=== PATIENT | male | born 1985 | race Caucasian/White ===

== ENCOUNTER 2018-10-10 10:45 | Inpatient (IN) | payer MEDICAID, OTHER ==
[~2018-10-10] VITALS: Ht 175.3 cm; Wt 124.0 kg
[2018-10-10 12:25] LABS: Urine Bacteria FEW /hpf (None Seen); Urine Blood TRACE /uL (Negative); Urine Mucus FEW (None Seen); Urine Specific Gravity 1.038 (1.001-1.035); Urine WBC 20 /hpf (0 - 3)
[2018-10-10] MEDS ORDERED: cefTRIAXone 1GM/50ML D5W 50 ML IV ONE (13:45)
[2018-10-10] MEDS ORDERED: SODIUM CHLORIDE 0.9% 1,000 ML IV ONE ×2 (13:45→14:30)
[2018-10-10 14:07] LABS: Basophils # (auto) 0.2 uL; Basophils % (auto) 0.9 % (0.0-2.0); Eosinophils # (auto) 0 uL; Eosinophils % (auto) 0.1 % (0.0-7.0); Hematocrit 49.5 % (41.0-53.0); Hemoglobin 17.1 g/dL (13.5-17.5); Lymphocytes # (auto) 1.3 uL; Lymphocytes % (auto) 5.4 % (10.0-50.0); Mean Corpuscular Hemoglobin 28.8 pg (28.0-32.0); Mean Corpuscular Hgb Conc. 34.5 g/dL (32.0-36.0); Mean Corpuscular Volume 83.3 fL (80.0-100.0); Monocytes # (auto) 1.9 uL; Monocytes % (auto) 7.8 % (0.0-12.0); Neutrophils # (auto) 20.8 uL; Neutrophils % (auto) 85.8 % (37.0-80.0); Nucleated Red Blood Cells % 0.2 %; Platelet Count (auto) 176 10^3/uL (140-450); Red Blood Cells 5.94 10^6/uL (4.5-5.90); Red Cell Distribution Width 13.3 % (11.8-14.3); White Blood Cell 24.3 10^3/uL (4.4-10.8)
[2018-10-10 14:28] LABS: BUN/Creatinine Ratio 10.7; Calcium 9.2 mg/dL (8.5-10.1); Potassium 4.6 mmol/L (3.5-5.1)
[2018-10-10] MEDS ORDERED: CLINDAMYCIN 900MG IV 50 ML IV ONE (14:30)
[2018-10-10] MEDS ORDERED: InsuLIN REG 1unit/0.01ml Soln (100units/ml) IV ONE (14:45)
[2018-10-10] MEDS ORDERED: ONDANSETRON HCL 4 MG/2 ML VIAL IV PRN (16:45)
[2018-10-10] MEDS ORDERED: HYDROcodone-ACET 5/325MG TAB PO PRN (16:45)
[2018-10-10] MEDS ORDERED: MORPHINE SULF INJ 2 MG/ML SYRINGE 1ML IV PRN ×2 (16:45)
[2018-10-10] MEDS ORDERED: ACETAMINOPHEN 500 MG TAB PO PRN (16:45)
[2018-10-10] MEDS ORDERED: NITROGLYCERIN 0.4 MG SL TAB SL PRN (16:45)
[2018-10-10] MEDS ORDERED: DEXTROSE (50%) 50ML SYRG IV PRN (16:45)
[2018-10-10] MEDS: SODIUM CHLORIDE 0.9% 1,000 ML IV SCH (16:50)
[2018-10-10] MEDS: InsuLIN REG 1unit/0.01ml Soln (100units/ml) SC SCH ×2 (17:55→22:10)
[2018-10-10] MEDS: ACCU-CHEK COMFORT CURVE STRIP VI SCH ×2 (17:59→22:09)
[2018-10-10 18:12] LABS: Lactic Acid w/Reflex 2.7 mmol/L (0.4-2.0)
--- NOTE | 2018-10-10 18:23 | NUR ---
MS admit from ER SHANTELLLINDA admitted to ROOM 248B. Patient oriented to Allyson Ludwig, primary RN, unit, room, bed, and unit policies regarding patient care and visiting hours. All questions and concerns addressed, patient verbalized understanding. Bed locked in the lowest position. Bed rails up x2. Call light in reach.
[2018-10-10 18:34] VITALS: BP 168/99
[2018-10-10] MEDS: hydrALAZINE HCL 20 MG/ML VL IV PRN (18:50)
--- NOTE | 2018-10-10 19:00 | NUR ---
CLOSING NOTE Patient is awake and alert. No S/S of distress/SOB or pain. Bed locked in the lowest position. Bed rails up x2. Call light in reach. Endorsed care and admit to night nurse. Night RN Marycarmen aware of last bp and administration of iv bp medication.
--- NOTE | 2018-10-10 19:40 | NUR ---
Opening Shift Note Assumed care of patient, alert and oriented x 4. On room air and ambulatory. No S/S of distress/SOB or pain. Bed in lowest locked position, side rails up x 2, call light within reach. Instructed on POC and to call for assist PRN, will continue to monitor for changes Q1hr and PRN.
[2018-10-10 20:00] VITALS: BP 168/99
[2018-10-10] MEDS: CLINDAMYCIN 300MG IV 50 ML IV SCH (22:05)
[2018-10-10 22:26] VITALS: BP 145/85
[2018-10-11] MEDS: SODIUM CHLORIDE 0.9% 1,000 ML IV SCH (00:54)
[2018-10-11] MEDS: hydrALAZINE HCL 20 MG/ML VL IV PRN ×2 (04:46→16:46)
[2018-10-11 05:30] VITALS: BP 187/109
[2018-10-11 06:24] LABS: Basophils # (auto) 0.1 uL; Basophils % (auto) 0.7 % (0.0-2.0); Eosinophils # (auto) 0 uL; Eosinophils % (auto) 0.1 % (0.0-7.0); Hematocrit 41.4 % (41.0-53.0); Hemoglobin 14.6 g/dL (13.5-17.5); Lymphocytes # (auto) 1.7 uL; Lymphocytes % (auto) 8.7 % (10.0-50.0); Mean Corpuscular Hgb Conc. 35.1 g/dL (32.0-36.0); Mean Corpuscular Volume 82.6 fL (80.0-100.0); Monocytes # (auto) 1.7 uL; Monocytes % (auto) 8.5 % (0.0-12.0); Neutrophils # (auto) 16.3 uL; Nucleated Red Blood Cells % 0.1 %; Platelet Count (auto) 145 10^3/uL (140-450); Red Blood Cells 5.02 10^6/uL (4.5-5.90); Red Cell Distribution Width 12.7 % (11.8-14.3); White Blood Cell 19.9 10^3/uL (4.4-10.8)
[2018-10-11] MEDS: CLINDAMYCIN 300MG IV 50 ML IV SCH ×3 (06:40→22:43)
[2018-10-11] MEDS: ACCU-CHEK COMFORT CURVE STRIP VI SCH ×4 (06:40→22:43)
[2018-10-11] MEDS: InsuLIN REG 1unit/0.01ml Soln (100units/ml) SC SCH ×4 (06:41→22:44)
[2018-10-11 06:45] LABS: Albumin 2.9 g/dL (3.4-5.0); BUN/Creatinine Ratio 14.7; Calcium 8.2 mg/dL (8.5-10.1)
[2018-10-11 06:48] LABS: Bilirubin, Total 1.1 mg/dL (0.2-1.0)
[2018-10-11 06:49] LABS: Total Protein 7.2 g/dL (6.4-8.2)
[2018-10-11] MEDS: LEVOFLOXACIN 750MG 150 ML IV SCH (10:23)
[2018-10-11] MEDS: FAMOTIDINE 20 MG TAB PO SCH (10:23)
[2018-10-11] MEDS ORDERED: amLODIPine BESYLATE 5 MG TAB PO ONE (11:00)
--- NOTE | 2018-10-11 11:27 | NUR ---
Urology at bedside MD Valles at bedside. New orders received for scrotal support. Placed towels under patient's scrotum and instructed patient to continue scrotal support as ordered. Patient tolerated well. No distress noted at this time. Will cont to monitor
[2018-10-11 12:18] LABS: Lactic Acid w/Reflex 2.1 mmol/L (0.4-2.0)
[2018-10-11 13:00] VITALS: BP 158/90
[2018-10-11 17:01] VITALS: BP 169/111
[2018-10-11 18:10] VITALS: BP 157/91
--- NOTE | 2018-10-11 18:10 | NUR ---
BP Reassessed, Hospitalist paged Medicated with Apresoline as ordered, BP reassessed is 157/91 hr 116. Paged hospitalist for further ordered. Awaiting call back
--- NOTE | 2018-10-11 19:00 | NUR ---
Hospitalist call back spoke to Dr Marin regarding elevated BP, no new orders received at this time per Doctor Tania continue to monitor.
--- NOTE | 2018-10-11 19:50 | NUR ---
Opening Shift Note Assumed care of patient, alert and oriented x 4. On room air and ambulatory. No S/S of distress/SOB or pain. Per dayshift nurse, continue monitoring high blood pressure. Bed in lowest locked position, side rails up x 2, call light within reach. Instructed on POC and to call for assist PRN, will continue to monitor for changes Q1hr and PRN.
[2018-10-11 20:00] VITALS: BP 153/100
[2018-10-11 21:30] VITALS: BP 153/100
--- NOTE | 2018-10-12 05:10 | NUR ---
Blood pressure 161/115 Upon assessment, no S/S of distress or SOB noted. Administered Apresoline 10mg IV PRN for SBP >150 as ordered. Rechecked patients blood pressure reading 151/95. Patient resting in bed, will relay assessment and orders carried out to dayshift RN.
[2018-10-12 05:48] VITALS: BP 161/115
[2018-10-12] MEDS: CLINDAMYCIN 300MG IV 50 ML IV SCH ×3 (06:28→21:42)
[2018-10-12] MEDS: ACCU-CHEK COMFORT CURVE STRIP VI SCH ×4 (06:29→21:42)
[2018-10-12] MEDS: InsuLIN REG 1unit/0.01ml Soln (100units/ml) SC SCH ×4 (06:29→21:43)
[2018-10-12 07:14] LABS: Basophils # (auto) 0 uL; Basophils % (auto) 0.2 % (0.0-2.0); Eosinophils # (auto) 0.1 uL; Eosinophils % (auto) 0.6 % (0.0-7.0); Hematocrit 43.3 % (41.0-53.0); Hemoglobin 14.8 g/dL (13.5-17.5); Lymphocytes # (auto) 1.8 uL; Mean Corpuscular Hemoglobin 28.6 pg (28.0-32.0); Mean Corpuscular Hgb Conc. 34.1 g/dL (32.0-36.0); Monocytes # (auto) 1.6 uL; Neutrophils % (auto) 80.2 % (37.0-80.0); Nucleated Red Blood Cells % 0.1 %; Platelet Count (auto) 168 10^3/uL (140-450); Red Blood Cells 5.16 10^6/uL (4.5-5.90); Red Cell Distribution Width 13.3 % (11.8-14.3); White Blood Cell 17.5 10^3/uL (4.4-10.8)
[2018-10-12 07:16] LABS: Albumin 2.9 g/dL (3.4-5.0); Calcium 8.6 mg/dL (8.5-10.1); Potassium 4.1 mmol/L (3.5-5.1)
[2018-10-12 07:20] LABS: BUN/Creatinine Ratio 16.7; Bilirubin, Total 0.8 mg/dL (0.2-1.0); Total Protein 7.7 g/dL (6.4-8.2)
[2018-10-12 09:21] VITALS: BP 178/96
[2018-10-12] MEDS ORDERED: LOSARTAN POTASSIUM 25 MG TAB PO SCH (10:00)
[2018-10-12] MEDS: FAMOTIDINE 20 MG TAB PO SCH (10:06)
[2018-10-12] MEDS: LEVOFLOXACIN 750MG 150 ML IV SCH (10:06)
[2018-10-12] MEDS: amLODIPine BESYLATE 5 MG TAB PO SCH (10:10)
[2018-10-12] MEDS ORDERED: metFORMIN HYDROCHLORIDE 500 MG TAB PO ONE (11:30)
[2018-10-12] MEDS ORDERED: DEXTROSE (50%) 50ML SYRG IV PRN (11:30)
[2018-10-12 12:39] VITALS: BP 167/95
[2018-10-12] MEDS: hydrALAZINE HCL 20 MG/ML VL IV PRN ×2 (12:44→21:43)
[2018-10-12] MEDS ORDERED: LOSARTAN POTASSIUM 25 MG TAB PO ONE (14:00)
--- NOTE | 2018-10-12 14:43 | NUR ---
Nutrition Assessment Notes please see attached link for complete assessment Est. Needs ABW 83 [id number] kcal (23-25 kcal/kgBW), 83-91 gms pro (1.0-1.1 gms/kgBW). Will continue to monitor pertinent labs and reassess nutrient need prn Addendum: 10/12/18 at [address] Amended: Links added.
[2018-10-12 16:39] VITALS: BP 156/87
--- NOTE | 2018-10-12 17:50 | NUR ---
Urologist at bedside DUY Lion at bedside to assess patient. Scrotal support in place as ordered. No further orders received at this time. Will cont care
[2018-10-12] MEDS: metFORMIN HYDROCHLORIDE 500 MG TAB PO SCH (17:57)
[2018-10-12] MEDS: cloNIDine HCL 0.1 MG TAB PO PRN (18:57)
--- NOTE | 2018-10-12 19:00 | NUR ---
Endorsed care care endorsed to Marycarmen gordon. Patient laying down in bed, family at bedside. No ss of distress or sob. Patient medicated for increased BP and instructed to call for assistance as needed. Call light within reach
[2018-10-12 20:00] VITALS: BP 163/99
[2018-10-12 21:27] VITALS: BP 163/99
[2018-10-13 05:21] VITALS: BP 143/87
[2018-10-13 06:10] LABS: Basophils # (auto) 0.1 uL; Basophils % (auto) 0.6 % (0.0-2.0); Eosinophils # (auto) 0.1 uL; Eosinophils % (auto) 0.9 % (0.0-7.0); Hematocrit 43.2 % (41.0-53.0); Hemoglobin 14.8 g/dL (13.5-17.5); Lymphocytes % (auto) 12.5 % (10.0-50.0); Mean Corpuscular Hemoglobin 28.3 pg (28.0-32.0); Mean Corpuscular Hgb Conc. 34.2 g/dL (32.0-36.0); Mean Corpuscular Volume 82.9 fL (80.0-100.0); Monocytes # (auto) 1.5 uL; Monocytes % (auto) 9.7 % (0.0-12.0); Neutrophils # (auto) 11.9 uL; Neutrophils % (auto) 76.3 % (37.0-80.0); Nucleated Red Blood Cells % 0.1 %; Platelet Count (auto) 193 10^3/uL (140-450); Red Blood Cells 5.22 10^6/uL (4.5-5.90); Red Cell Distribution Width 13.3 % (11.8-14.3); White Blood Cell 15.6 10^3/uL (4.4-10.8)
[2018-10-13] MEDS: CLINDAMYCIN 300MG IV 50 ML IV SCH ×2 (06:15→14:00)
[2018-10-13] MEDS: ACCU-CHEK COMFORT CURVE STRIP VI SCH ×4 (06:15→22:00)
[2018-10-13] MEDS: InsuLIN REG 1unit/0.01ml Soln (100units/ml) SC SCH ×4 (06:17→22:00)
[2018-10-13 06:32] LABS: BUN/Creatinine Ratio 19.1; Calcium 8.8 mg/dL (8.5-10.1); Potassium 3.7 mmol/L (3.5-5.1)
[2018-10-13 08:00] VITALS: BP 143/87
[2018-10-13] MEDS: metFORMIN HYDROCHLORIDE 500 MG TAB PO SCH (08:00)
[2018-10-13 08:45] VITALS: BP 145/99
[2018-10-13] MEDS: FAMOTIDINE 20 MG TAB PO SCH (09:44)
[2018-10-13] MEDS: LEVOFLOXACIN 750MG 150 ML IV SCH (09:47)
[2018-10-13] MEDS: SODIUM CHLORIDE 0.9% 1,000 ML IV SCH ×2 (10:00→18:00)
[2018-10-13] MEDS: LOSARTAN POTASSIUM 50 MG TAB PO SCH (10:00)
[2018-10-13] MEDS ORDERED: LOSARTAN POTASSIUM 25 MG TAB PO SCH (10:00)
[2018-10-13] MEDS: amLODIPine BESYLATE 5 MG TAB PO SCH (10:00)
[2018-10-13] MEDS: ENOXAPARIN SOD 40 MG/0.4 ML SYRINGE SC SCH (12:30)
[2018-10-13 16:53] VITALS: BP 150/84
[2018-10-13 22:00] VITALS: BP 154/96
[2018-10-14] MEDS: CLINDAMYCIN 300MG IV 50 ML IV SCH ×4 (03:54→21:34)
[2018-10-14 05:00] VITALS: BP 152/101
[2018-10-14 06:20] LABS: Basophils # (auto) 0.1 uL; Basophils % (auto) 0.5 % (0.0-2.0); Eosinophils # (auto) 0.1 uL; Hematocrit 42.3 % (41.0-53.0); Hemoglobin 14.6 g/dL (13.5-17.5); Lymphocytes # (auto) 2.2 uL; Lymphocytes % (auto) 15.9 % (10.0-50.0); Mean Corpuscular Hemoglobin 28.9 pg (28.0-32.0); Mean Corpuscular Hgb Conc. 34.7 g/dL (32.0-36.0); Mean Corpuscular Volume 83.3 fL (80.0-100.0); Monocytes # (auto) 1.2 uL; Neutrophils # (auto) 10.2 uL; Neutrophils % (auto) 73.6 % (37.0-80.0); Nucleated Red Blood Cells % 0.5 %; Platelet Count (auto) 212 10^3/uL (140-450); Red Blood Cells 5.07 10^6/uL (4.5-5.90); Red Cell Distribution Width 13.1 % (11.8-14.3); White Blood Cell 13.8 10^3/uL (4.4-10.8)
[2018-10-14] MEDS: InsuLIN REG 1unit/0.01ml Soln (100units/ml) SC SCH ×4 (06:38→21:34)
[2018-10-14] MEDS: ACCU-CHEK COMFORT CURVE STRIP VI SCH ×4 (06:38→21:34)
[2018-10-14 06:41] LABS: Calcium 8.8 mg/dL (8.5-10.1); Potassium 3.9 mmol/L (3.5-5.1)
--- NOTE | 2018-10-14 07:30 | NUR ---
Opening Shift Note Assuming care of patient at this time. Patient is awake and alert. Patient denies pain. Patient shows no signs or symptoms of distress or shortness of breath. Bed is locked and lowered with side rails up x2. Instructed patient on the plan of care for today and to call for assistance as needed. Call light within reach. Will continue to round hourly and as needed.
[2018-10-14] MEDS ORDERED: LABETALOL HCL 5 MG/ML ML 20ML VIAL IV PRN (07:45)
--- NOTE | 2018-10-14 08:49 | NUR ---
Call to Pharmacy Call to pharmacy at this time regarding patient's clindamycin times being off scheduled. Asked for patient's clindamycin to be rescheduled. Pharmacist states to give 0600 dose now and give 1400 dose as scheduled. Will follow those scheduled times.
[2018-10-14 09:00] VITALS: BP 148/97
[2018-10-14] MEDS: FAMOTIDINE 20 MG TAB PO SCH (10:52)
[2018-10-14] MEDS: amLODIPine BESYLATE 5 MG TAB PO SCH (10:53)
[2018-10-14] MEDS: LOSARTAN POTASSIUM 50 MG TAB PO SCH (10:54)
[2018-10-14] MEDS: ENOXAPARIN SOD 40 MG/0.4 ML SYRINGE SC SCH (10:54)
[2018-10-14] MEDS: metFORMIN HYDROCHLORIDE 500 MG TAB PO SCH ×2 (12:02→17:34)
[2018-10-14] MEDS: LEVOFLOXACIN 750MG 150 ML IV SCH (12:12)
[2018-10-14] MEDS ORDERED: ENOXAPARIN SOD 40 MG/0.4 ML SYRINGE SC ONE (12:15)
[2018-10-14 13:00] VITALS: BP 171/102
[2018-10-14] MEDS: hydrALAZINE HCL 20 MG/ML VL IV PRN (16:28)
--- NOTE | 2018-10-14 16:28 | NUR ---
Patient's Blood Pressure Patient's blood pressure is 171/99 at this time. Will administer apresoline per doctor's orders.
[2018-10-14 17:00] VITALS: BP 153/88
[2018-10-14 17:57] VITALS: BP 152/85
--- NOTE | 2018-10-14 17:57 | NUR ---
Re: Reassessment of blood pressure Reassessed patient's blood pressure at this time using a larger cuff. Blood pressure is 152/85. Patient states that the larger cuff is uncomfortable, however, the smaller cuff does not seem to be appropriate in size. A more accurate reading was obtained using the larger cuff. Patient's blood pressure is still over 150.
--- NOTE | 2018-10-14 18:15 | NUR ---
Blood Pressure Administered clonidine at this time due to patient's elevated blood pressure.
[2018-10-14] MEDS: cloNIDine HCL 0.1 MG TAB PO PRN (18:17)
--- NOTE | 2018-10-14 19:35 | NUR ---
RECEIVED PATIENT, AWAKE, ALERT, ORIENTED X4. NO S/S OF RESPIRATORY DISTRESS, DENIES ANY PAIN. ORIENTED ON PLAN OF CARE. BED IS LOCKED AND IN LOWEST POSITION, SIDE RAILS UP X2, CALL LIGHT WITHIN REACH. WILL CONTINUE TO MONITOR
[2018-10-14 21:00] VITALS: BP 137/85
[2018-10-14] MEDS ORDERED: FLUCONAZOLE 100 MG TAB PO ONE (22:00)
[2018-10-15] MEDS: cloNIDine HCL 0.1 MG TAB PO PRN (04:28)
[2018-10-15 04:30] VITALS: BP 154/90
--- NOTE | 2018-10-15 06:10 | NUR ---
UA SAMPLE SENT TO LAB
[2018-10-15 06:16] LABS: Basophils # (auto) 0.1 uL; Basophils % (auto) 0.5 % (0.0-2.0); Eosinophils # (auto) 0.1 uL; Eosinophils % (auto) 0.7 % (0.0-7.0); Hematocrit 42.6 % (41.0-53.0); Lymphocytes # (auto) 2.1 uL; Lymphocytes % (auto) 14.8 % (10.0-50.0); Mean Corpuscular Hemoglobin 29.1 pg (28.0-32.0); Mean Corpuscular Hgb Conc. 35.2 g/dL (32.0-36.0); Mean Corpuscular Volume 82.8 fL (80.0-100.0); Monocytes # (auto) 1.2 uL; Monocytes % (auto) 8.7 % (0.0-12.0); Neutrophils # (auto) 10.5 uL; Neutrophils % (auto) 75.3 % (37.0-80.0); Nucleated Red Blood Cells % 0.1 %; Platelet Count (auto) 222 10^3/uL (140-450); Red Blood Cells 5.15 10^6/uL (4.5-5.90)
[2018-10-15] MEDS: CLINDAMYCIN 300MG IV 50 ML IV SCH (06:19)
[2018-10-15] MEDS: InsuLIN REG 1unit/0.01ml Soln (100units/ml) SC SCH ×3 (06:20→18:42)
[2018-10-15] MEDS: ACCU-CHEK COMFORT CURVE STRIP VI SCH ×3 (06:20→17:50)
[2018-10-15 06:22] LABS: BUN/Creatinine Ratio 13.7; Magnesium 1.9 mg/dL (1.6-2.6)
[2018-10-15 06:39] LABS: Urine Bacteria NONE SEEN /hpf (None Seen); Urine Blood TRACE /uL (Negative); Urine Budding Yeast OCCASIONAL /hpf (None Seen); Urine Mucus FEW (None Seen); Urine Specific Gravity 1.013 (1.001-1.035); Urine WBC 19 /hpf (0 - 3)
--- NOTE | 2018-10-15 07:17 | NUR ---
CARE ENDORSED TO AM SHIFT RN
[2018-10-15] MEDS: metFORMIN HYDROCHLORIDE 500 MG TAB PO SCH ×2 (08:05→18:42)
[2018-10-15 09:00] VITALS: BP 156/97
[2018-10-15] MEDS: FAMOTIDINE 20 MG TAB PO SCH (09:42)
[2018-10-15] MEDS: LOSARTAN POTASSIUM 50 MG TAB PO SCH (09:43)
[2018-10-15] MEDS: ENOXAPARIN SOD 40 MG/0.4 ML SYRINGE SC SCH (09:45)
[2018-10-15] MEDS: amLODIPine BESYLATE 5 MG TAB PO SCH (09:45)
[2018-10-15] MEDS: LEVOFLOXACIN 750MG 150 ML IV SCH (09:45)
[2018-10-15] MEDS ORDERED: ENOXAPARIN SOD 40 MG/0.4 ML SYRINGE SC SCH (10:00)
[2018-10-15] MEDS ORDERED: FLUCONAZOLE 100 MG TAB PO SCH (10:00)
[2018-10-15 13:00] VITALS: BP 154/98
[2018-10-15 17:00] VITALS: BP 159/94
[2018-10-15 17:33] VITALS: BP 154/98
--- NOTE | 2018-10-15 18:45 | NUR ---
Discharge Discharge instructions given as ordered. Encourage to follow up with PMD as instructed. All questions and concerns addressed. Diabetic Teaching done, showed patient how to check blood sugar. Return demonstration done. Gave patient all necessary diabetic education teaching, including pamphlets and brochures for classes. Patient verbalized understanding. Father at bedside. IV removed with catheter intact, pressure dressing applied. Patient ambulated with all personal belongings, accompanied by family member. No distress noted at time of departure.
== END 2018-10-15 18:58 | disposition home or self-care (01) | DRG 720 ==
LOC: ER 10:45 → OVERFLOW 10:46 → EAST 18:28
PROVIDERS: ADMIT Nurse Practitioner Acute Care; ATTEND Internal Medicine Nephrology
DX: A41.9 Sepsis, unspecified organism (principal); E11.22 Type 2 diabetes mellitus with diabetic chronic kidney disease; B48.8 Other specified mycoses; E11.65 Type 2 diabetes mellitus with hyperglycemia; N18.3 Chronic kidney disease, stage 3 (moderate); R65.20 Severe sepsis without septic shock; N49.2 Inflammatory disorders of scrotum; E86.0 Dehydration; E66.9 Obesity, unspecified; I12.9 Hypertensive chronic kidney disease with stage 1 through stage 4 chronic kidney disease, or unspecified chronic kidney disease; Z88.0 Allergy status to penicillin; Z88.8 Allergy status to other drugs, medicaments and biological substances; F17.210 Nicotine dependence, cigarettes, uncomplicated; N50.89 Other specified disorders of the male genital organs; Z82.49 Family history of ischemic heart disease and other diseases of the circulatory system; Z83.3 Family history of diabetes mellitus; Z87.892 Personal history of anaphylaxis; Z68.41 Body mass index [BMI] 40.0-44.9, adult; E87.1 Hypo-osmolality and hyponatremia; N39.0 Urinary tract infection, site not specified
CPT/HCPCS: 36415; 76870; 80048; 80053; 80061; 81001; 82043; 82962; 83036; 83605; 83735; 85025; 87040; 87081; 87086; 93005; 96361; 96365; 96367; 96375; G0378; J0696; J1815; J1956; J3490

== ENCOUNTER 2021-08-13 11:20 | Emergency (ER) | payer MEDICAID ==
[~2021-08-13] VITALS: Ht 175.3 cm; Wt 127.0 kg
[2021-08-13 11:30] VITALS: BP 157/87
[2021-08-13] MEDS ORDERED: LIDOCAINE 1% HCL (LOCAL ANESTH.) INJ 20ML MDV ONE (12:42)
[2021-08-13] MEDS ORDERED: LIDOCAINE 1% HCL (LOCAL ANESTH.) INJ 20ML MDV IJ ONE (12:45)
[2021-08-13] MEDS ORDERED: IBUP800T27 PO (13:01)
[2021-08-13] MEDS ORDERED: SULF400T11 PO (13:01)
[2021-08-18] MEDS ORDERED: LOSA-69 PO (10:42)
[2021-08-18] MEDS ORDERED: CAR125T OR (10:42)
[2021-08-18] MEDS ORDERED: AMLO-489 PO (10:42)
[2021-08-18] MEDS ORDERED: METF-370 PO (10:42)
[2021-08-18] MEDS ORDERED: CLIN300C8 PO (10:43)
== END 2021-08-13 13:31 | disposition home or self-care (01) ==
LOC: ER 11:20
DX: L02.412 Cutaneous abscess of left axilla (principal); E11.9 Type 2 diabetes mellitus without complications; I10 Essential (primary) hypertension; Z88.0 Allergy status to penicillin
CPT/HCPCS: 10060; 99283; J2001

== ENCOUNTER 2023-10-04 11:14 | Inpatient (IN) | payer MEDICAID ==
[~2023-10-04] VITALS: Ht 175.3 cm; Wt 128.0 kg
[~2023-10-04 11:14] MED LIST: AMLO1TAB22 PO; CARV-216 OR; CLIN1CAP70 PO; LOSA-534 PO; METF-370 PO
[2023-10-04 11:57] LABS: Hemoglobin 13.9 g/dL (13.5-17.5); Mean Corpuscular Hemoglobin 28.4 pg (28.0-32.0); Mean Corpuscular Volume 83.6 fL (80.0-100.0); Platelet Count (auto) 183 10^3/uL (140-450); Red Cell Distribution Width 13.2 % (11.8-14.3)
[2023-10-04] MEDS: SODIUM CHLORIDE 0.9% 500 ML IV ONE (12:00)
[2023-10-04 12:02] LABS: Band Neutrophils % (manual) 0; Basophils % (manual) 0 (0.0-2.0); Blast Cells 0; Eosinophils % (manual) 0 (0-7); Metamyelocytes % 0; Myelocytes % 0; Promyelocytes % 0; Reactive Lymphocytes 0; White Blood Cell 36.5 10^3/uL (4.4-10.8)
[2023-10-04 12:10] LABS: Chloride 86 mmol/L (98-107); Potassium 4.4 mmol/L (3.5-5.1); Sodium 121 mmol/L (136-145)
[2023-10-04 12:11] LABS: Calcium 8.8 mg/dL (8.7-10.4); Carbon Dioxide 26 mmol/L (20-30)
[2023-10-04 12:16] LABS: BUN/Creatinine Ratio 12.9 (10.0-20.0); Blood Urea Nitrogen 13 mg/dL (9-23)
[2023-10-04 12:18] LABS: Glucose 509 mg/dL (74-106)
[2023-10-04 12:22] LABS: Lactic Acid w/Reflex 3.1 mmol/L (0.4-2.0)
[2023-10-04 12:38] LABS: Anion Gap 9 (5-15)
[2023-10-04 12:41] LABS: Lymphocytes % (manual) 12 (10.0-50.0); Monocytes % (manual) 9 (0-12); Platelet Estimate Adequate
[2023-10-04 12:45] LABS: Erythrocyte Sedimentation Rate 72 mm/hr (0-20)
[2023-10-04] MEDS: VANCOMYCIN 1GM/200ML 200 ML IV ONE (13:27)
[2023-10-04] MEDS: InsuLIN REG 1unit/0.01ml Soln (100units/ml) IV ONE (13:27)
[2023-10-04 13:35] VITALS: PULSE 121; RESP 14; O2SAT 95
[2023-10-04] MEDS ORDERED: NITROGLYCERIN 0.4 MG SL TAB SL PRN (14:00)
[2023-10-04] MEDS: ENOXAPARIN SOD 40 MG/0.4 ML SYRINGE SC SCH (14:00)
[2023-10-04] MEDS ORDERED: DEXTROSE (50%) 50ML SYRG IV PRN (14:00)
[2023-10-04] MEDS ORDERED: ONDANSETRON HCL 4 MG/2 ML VIAL IV PRN (14:00)
[2023-10-04] MEDS ORDERED: VANCOMYCIN PER PHARMACY 0 MG IV SCH (14:00)
[2023-10-04] MEDS: SODIUM CHLORIDE 0.9% 1,000 ML IV SCH (14:54)
[2023-10-04] MEDS: TETANUS-DIPTH-ACEL PERTUSSIS 0.5ML SYR Tdap IM ONE (15:03)
[2023-10-04] MEDS: metroNIDAZOLE 500MG/100ML 100 ML IV ONE (15:26)
[2023-10-04] MEDS: CEFEPIME 2GM/50ML NS 50 ML IV ONE (15:26)
[2023-10-04] MEDS: SODIUM CHLORIDE 0.9% 2,000 ML IV ONE (15:44)
[2023-10-04] MEDS: ACCU-CHEK COMFORT CURVE STRIP VI SCH (16:00)
[2023-10-04 17:29] VITALS: BP 145/91; PULSE 111; RESP 18; TEMP 99.2; O2SAT 92
[2023-10-04 17:30] VITALS: BP 145/91; PULSE 111; RESP 20; TEMP 98.9; O2SAT 92
[2023-10-04] MEDS: InsuLIN REG 1unit/0.01ml Soln (100units/ml) SC SCH (18:57)
[2023-10-04 19:33] LABS: Base Excess 2.2 mmol/L (-2.0-2.0)
[2023-10-04 20:00] VITALS: PULSE 112
[2023-10-04] MEDS: metroNIDAZOLE 500MG/100ML 100 ML IV SCH (20:28)
[2023-10-04 21:00] VITALS: BP 128/73; PULSE 112; RESP 20; TEMP 98.6; O2SAT 96
[2023-10-04 21:45] LABS: Chloride 90 mmol/L (98-107); Sodium 124 mmol/L (136-145)
[2023-10-04 21:46] LABS: Anion Gap 8 (5-15); Carbon Dioxide 26 mmol/L (20-30)
[2023-10-04 21:47] LABS: Calcium 8.3 mg/dL (8.7-10.4)
[2023-10-04 21:51] LABS: BUN/Creatinine Ratio 16.3 (10.0-20.0); Blood Urea Nitrogen 15 mg/dL (9-23)
[2023-10-04 22:05] LABS: Glucose 439 mg/dL (74-106)
[2023-10-04] MEDS: VANCOMYCIN 1GM/200ML 200 ML IV SCH (22:20)
[2023-10-04] MEDS: CEFEPIME 2GM/50ML NS 50 ML IV SCH (23:36)
[2023-10-05] VITALS (7 sets, daily range): BP systolic 130–147; BP diastolic 86–91; PULSE 75–116; RESP 16–20; TEMP 98.6–100.1; O2SAT 92–96
[2023-10-05 06:24] LABS: Basophils # (auto) 0.1 10 ^3/uL (0-0.2); Basophils % (auto) 0.2 % (0.0-2.0); Eosinophils # (auto) 0 10 ^3/uL (0-0.8); Eosinophils % (auto) 0.2 % (0.0-7.0); Hematocrit 37.6 % (41.0-53.0); Hemoglobin 12.8 g/dL (13.5-17.5); Lymphocytes # (auto) 2.8 10 ^3/uL (0.4-5.4); Lymphocytes % (auto) 12.1 % (10.0-50.0); Mean Corpuscular Hemoglobin 28.2 pg (28.0-32.0); Mean Corpuscular Volume 83.1 fL (80.0-100.0); Monocytes # (auto) 2.5 10 ^3/uL (0-1.3); Neutrophils # (auto) 17.5 10 ^3/uL (1.6-8.6); Neutrophils % (auto) 76.5 % (37.0-80.0); Platelet Count (auto) 164 10^3/uL (140-450); Red Blood Cells 4.53 10^6/uL (4.5-5.90); Red Cell Distribution Width 13.4 % (11.8-14.3); White Blood Cell 22.9 10^3/uL (4.4-10.8)
[2023-10-05 06:47] LABS: Alanine Aminotransferase 13 U/L (7-40); Albumin 3.1 g/dL (3.2-4.8); Alkaline Phosphatase 135 U/L (46-116); Anion Gap 7 (5-15); Aspartate Aminotransferase 12 U/L (13-40); Blood Urea Nitrogen 12 mg/dL (9-23); Calcium 8.1 mg/dL (8.7-10.4); Carbon Dioxide 27 mmol/L (20-30); Chloride 92 mmol/L (98-107); Potassium 3.6 mmol/L (3.5-5.1); Sodium 126 mmol/L (136-145)
[2023-10-05 06:48] LABS: Bilirubin, Total 0.5 mg/dL (0.2-1.0); Glucose 270 mg/dL (74-106); Total Protein 6.8 g/dL (5.7-8.2)
[2023-10-05] MEDS: CLINDAMYCIN 600MG IV 50 ML IV SCH (10:07)
[2023-10-05] MEDS: MEROPENEM 1GM IVPB 50 ML IV SCH (14:51)
[2023-10-05] MEDS: VANCOMYCIN 1GM/200ML 200 ML IV SCH (18:23)
[2023-10-05] MEDS: MORPHINE SULFATE INJ 2 MG/ml SYRG IV PRN (20:25)
[2023-10-06] VITALS (8 sets, daily range): BP systolic 135–149; BP diastolic 87–98; PULSE 95–118; RESP 16–22; TEMP 98.1–100.4; O2SAT 93–99
[2023-10-06 06:39] LABS: Chloride 91 mmol/L (98-107); Potassium 3.8 mmol/L (3.5-5.1); Sodium 125 mmol/L (136-145)
[2023-10-06 06:40] LABS: Anion Gap 9 (5-15); Calcium 7.7 mg/dL (8.7-10.4); Carbon Dioxide 25 mmol/L (20-30)
[2023-10-06 06:45] LABS: BUN/Creatinine Ratio 18.2 (10.0-20.0); Blood Urea Nitrogen 12 mg/dL (9-23); Glucose 253 mg/dL (74-106)
[2023-10-06 06:59] LABS: Basophils # (auto) 0.2 10 ^3/uL (0-0.2); Basophils % (auto) 0.7 % (0.0-2.0); Eosinophils # (auto) 0.1 10 ^3/uL (0-0.8); Eosinophils % (auto) 0.4 % (0.0-7.0); Hematocrit 36.9 % (41.0-53.0); Hemoglobin 12.9 g/dL (13.5-17.5); Lymphocytes # (auto) 3.2 10 ^3/uL (0.4-5.4); Lymphocytes % (auto) 11.4 % (10.0-50.0); Mean Corpuscular Hemoglobin 28.8 pg (28.0-32.0); Mean Corpuscular Hgb Conc. 34.9 g/dL (32.0-36.0); Mean Corpuscular Volume 82.4 fL (80.0-100.0); Monocytes # (auto) 1.7 10 ^3/uL (0-1.3); Monocytes % (auto) 6.2 % (0.0-12.0); Neutrophils # (auto) 22.5 10 ^3/uL (1.6-8.6); Neutrophils % (auto) 81.3 % (37.0-80.0); Platelet Count (auto) 168 10^3/uL (140-450); Red Blood Cells 4.47 10^6/uL (4.5-5.90); Red Cell Distribution Width 13.6 % (11.8-14.3); White Blood Cell 27.7 10^3/uL (4.4-10.8)
[2023-10-06] MEDS: BUPIVACAINE 0.5% MPF INJ 30ML SDV IJ ONE (09:29)
[2023-10-06 09:32] LABS: INR 1.23 (0.9-1.15); Partial Thromboplastin Time 27.2 SEC (24.5-34.5); Prothrombin Time 12.8 sec (9.3-11.8)
[2023-10-06] MEDS: BUPIVACAINE 0.5% P/F INJ 10 ML VIAL ONE (11:00)
[2023-10-06] MEDS ORDERED: LIDOCAINE 2% (LOCAL ANESTH.) PF 5ml SDV ONE (11:08)
[2023-10-06] MEDS ORDERED: fentaNYL CITRATE 100 MCG/2 ML VL ONE (11:08)
[2023-10-06] MEDS ORDERED: MIDAZOLAM HCL 2MG/2ML 2ml VIAL (1mg/ml) ONE (11:08)
[2023-10-06] MEDS ORDERED: PROPOFOL 10 MG/ML 20 ML IV ONE (11:08)
[2023-10-06] MEDS ORDERED: ONDANSETRON HCL 4 MG/2 ML VIAL ONE (11:08)
[2023-10-06 11:11] LABS: Urine Bacteria FEW /hpf (None Seen); Urine Blood 1+ /uL (Negative); Urine Budding Yeast OCCASIONAL /hpf (None Seen); Urine Clarity Clear (Clear); Urine Color Yellow (Yellow); Urine Mucus FEW (None Seen); Urine Protein, UAD 1+ (Negative); Urine Specific Gravity 1.025 (1.001-1.035); Urine Urobilinogen 2 mg/dL (Negative); Urine WBC 2 /hpf (0 - 3); Urine pH 5.5 (5.0-9.0)
[2023-10-06] MEDS ORDERED: HYDROmorphone HCL 2 MG/ML VL/or syr IV PRN (12:00)
[2023-10-06] MEDS: ONDANSETRON HCL 4 MG/2 ML VIAL IV ONE (12:00)
[2023-10-06] MEDS: MEPERIDINE HCL (25 MG/ML) 1ML VIAL IV ONE (12:30)
[2023-10-06] MEDS: MEPERIDINE HCL (25 MG/ML) 1ML VIAL ONE (12:58)
[2023-10-06] MEDS ORDERED: PANTOPRAZOLE 40 MG TAB PO ONE (16:45)
[2023-10-06] MEDS: PANTOPRAZOLE 40 MG TAB PO SCH (17:00)
[2023-10-06] MEDS: DOCUSATE SOD 100 MG CAP PO PRN (20:18)
[2023-10-06] MEDS: INSULIN LANTUS (GLARGINE) 1 /0.01ml (100units/ml) SC SCH (22:14)
[2023-10-07] VITALS (8 sets, daily range): BP systolic 131–184; BP diastolic 80–96; PULSE 90–140; RESP 17–21; TEMP 97.7–99.1; O2SAT 90–99
[2023-10-07 05:51] LABS: Basophils # (auto) 0.1 10 ^3/uL (0-0.2); Basophils % (auto) 0.2 % (0.0-2.0); Eosinophils # (auto) 0.1 10 ^3/uL (0-0.8); Eosinophils % (auto) 0.2 % (0.0-7.0); Hematocrit 36.8 % (41.0-53.0); Hemoglobin 12.6 g/dL (13.5-17.5); Lymphocytes # (auto) 2.7 10 ^3/uL (0.4-5.4); Lymphocytes % (auto) 9.2 % (10.0-50.0); Mean Corpuscular Hemoglobin 28.6 pg (28.0-32.0); Mean Corpuscular Hgb Conc. 34.1 g/dL (32.0-36.0); Mean Corpuscular Volume 83.9 fL (80.0-100.0); Monocytes # (auto) 2.1 10 ^3/uL (0-1.3); Monocytes % (auto) 7.2 % (0.0-12.0); Neutrophils # (auto) 24.3 10 ^3/uL (1.6-8.6); Neutrophils % (auto) 83.2 % (37.0-80.0); Platelet Count (auto) 205 10^3/uL (140-450); Red Blood Cells 4.38 10^6/uL (4.5-5.90); Red Cell Distribution Width 13.4 % (11.8-14.3); White Blood Cell 29.2 10^3/uL (4.4-10.8)
[2023-10-07 06:09] LABS: Chloride 94 mmol/L (98-107); Potassium 3.6 mmol/L (3.5-5.1); Sodium 124 mmol/L (136-145)
[2023-10-07 06:11] LABS: BUN/Creatinine Ratio 7.5 (10.0-20.0); Blood Urea Nitrogen 5 mg/dL (9-23); Glucose 250 mg/dL (74-106)
[2023-10-07 06:12] LABS: Anion Gap 6 (5-15); Calcium 7.6 mg/dL (8.7-10.4); Carbon Dioxide 24 mmol/L (20-30)
[2023-10-07] MEDS: INSULIN LANTUS (GLARGINE) 1 /0.01ml (100units/ml) SC SCH (12:00)
[2023-10-07] MEDS: amLODIPine BESYLATE 5 MG TAB PO SCH (12:24)
[2023-10-07] MEDS: LOSARTAN POTASSIUM 25 MG TAB PO SCH (12:24)
[2023-10-08] VITALS (9 sets, daily range): BP systolic 105–151; BP diastolic 70–94; PULSE 76–116; RESP 14–22; TEMP 98.1–100.5; O2SAT 91–98
[2023-10-08 06:04] LABS: Basophils # (auto) 0.2 10 ^3/uL (0-0.2); Basophils % (auto) 0.6 % (0.0-2.0); Eosinophils # (auto) 0.1 10 ^3/uL (0-0.8); Eosinophils % (auto) 0.5 % (0.0-7.0); Hematocrit 35.5 % (41.0-53.0); Lymphocytes % (auto) 7.1 % (10.0-50.0); Mean Corpuscular Hemoglobin 28.6 pg (28.0-32.0); Mean Corpuscular Hgb Conc. 33.7 g/dL (32.0-36.0); Mean Corpuscular Volume 84.7 fL (80.0-100.0); Monocytes # (auto) 1.5 10 ^3/uL (0-1.3); Monocytes % (auto) 5.1 % (0.0-12.0); Neutrophils # (auto) 24.7 10 ^3/uL (1.6-8.6); Neutrophils % (auto) 86.7 % (37.0-80.0); Platelet Count (auto) 225 10^3/uL (140-450); Red Blood Cells 4.19 10^6/uL (4.5-5.90); Red Cell Distribution Width 13.8 % (11.8-14.3); White Blood Cell 28.5 10^3/uL (4.4-10.8)
[2023-10-08 06:06] LABS: Anion Gap 6 (5-15); Carbon Dioxide 26 mmol/L (20-30); Chloride 93 mmol/L (98-107); Potassium 3.7 mmol/L (3.5-5.1); Sodium 125 mmol/L (136-145)
[2023-10-08 06:08] LABS: Calcium 7.8 mg/dL (8.7-10.4)
[2023-10-08 06:12] LABS: BUN/Creatinine Ratio 7.9 (10.0-20.0); Blood Urea Nitrogen 5 mg/dL (9-23); Glucose 226 mg/dL (74-106)
[2023-10-08] MEDS: ACETAMINOPHEN 325 MG TAB PO ONE (22:32)
[2023-10-09 01:02] VITALS: BP 143/91; PULSE 105; RESP 17; TEMP 98.4; O2SAT 95
[2023-10-09 05:10] VITALS: BP 119/74; PULSE 94; RESP 17; TEMP 98.1; O2SAT 95
[2023-10-09] MEDS: SODIUM CHLORIDE 0.9% 1,000 ML IV SCH (06:50)
[2023-10-09 07:11] LABS: Basophils # (auto) 0.1 10 ^3/uL (0-0.2); Basophils % (auto) 0.5 % (0.0-2.0); Eosinophils # (auto) 0.1 10 ^3/uL (0-0.8); Eosinophils % (auto) 0.5 % (0.0-7.0); Hematocrit 34.6 % (41.0-53.0); Hemoglobin 11.7 g/dL (13.5-17.5); Lymphocytes # (auto) 2.5 10 ^3/uL (0.4-5.4); Lymphocytes % (auto) 10.1 % (10.0-50.0); Mean Corpuscular Hemoglobin 28.2 pg (28.0-32.0); Mean Corpuscular Hgb Conc. 33.7 g/dL (32.0-36.0); Mean Corpuscular Volume 83.6 fL (80.0-100.0); Monocytes # (auto) 1.4 10 ^3/uL (0-1.3); Monocytes % (auto) 5.8 % (0.0-12.0); Neutrophils # (auto) 20.4 10 ^3/uL (1.6-8.6); Neutrophils % (auto) 83.1 % (37.0-80.0); Platelet Count (auto) 265 10^3/uL (140-450); Red Blood Cells 4.14 10^6/uL (4.5-5.90); Red Cell Distribution Width 13.8 % (11.8-14.3); White Blood Cell 24.5 10^3/uL (4.4-10.8)
[2023-10-09 07:30] LABS: Albumin 2.5 g/dL (3.2-4.8); Alkaline Phosphatase 132 U/L (46-116); Anion Gap 3 (5-15); Aspartate Aminotransferase 9 U/L (13-40); Bilirubin, Total 0.5 mg/dL (0.2-1.0); Blood Urea Nitrogen 7 mg/dL (9-23); Calcium 7.7 mg/dL (8.7-10.4); Carbon Dioxide 28 mmol/L (20-30); Chloride 97 mmol/L (98-107); Glucose 234 mg/dL (74-106); Potassium 3.8 mmol/L (3.5-5.1); Sodium 128 mmol/L (136-145); Total Protein 6.3 g/dL (5.7-8.2)
[2023-10-09 07:35] LABS: Alanine Aminotransferase < 9 U/L (7-40)
[2023-10-09] MEDS: INSULIN LANTUS (GLARGINE) 1 /0.01ml (100units/ml) SC SCH (08:59)
[2023-10-09 09:00] VITALS: BP 108/46; PULSE 96; RESP 18; TEMP 97.5; O2SAT 97
[2023-10-09] MEDS: BUPIVACAINE 0.5% MPF INJ 30ML SDV IJ ONE (12:28)
[2023-10-09] MEDS: METOCLOPRAMIDE HCL 5MG/ml INJ 2ml VIAL IV ONE (12:30)
[2023-10-09] MEDS ORDERED: HYDROmorphone HCL 2 MG/ML VL/or syr IV PRN ×2 (12:30)
[2023-10-09] MEDS ORDERED: MORPHINE SULFATE INJ 2 MG/ml SYRG IV PRN (12:30)
[2023-10-09] MEDS ORDERED: fentaNYL CITRATE 100 MCG/2 ML VL IV PRN (12:30)
[2023-10-09] MEDS ORDERED: ONDANSETRON HCL 4 MG/2 ML VIAL ONE (12:40)
[2023-10-09] MEDS ORDERED: LIDOCAINE 1% INJ PF 5ML AMP ONE (12:40)
[2023-10-09] MEDS ORDERED: PROPOFOL 10 MG/ML 20 ML IV ONE (12:40)
[2023-10-09] MEDS ORDERED: fentaNYL CITRATE 100 MCG/2 ML VL ONE (12:40)
[2023-10-09] MEDS ORDERED: KETAMINE 50mg/ML 1ml syringe ONE (12:40)
[2023-10-09] MEDS ORDERED: MIDAZOLAM HCL 2MG/2ML 2ml VIAL (1mg/ml) ONE (12:40)
[2023-10-09] MEDS ORDERED: SODIUM CHLORIDE LOCK 10 ML ONE (12:40)
[2023-10-09] MEDS: MEPERIDINE HCL (25 MG/ML) 1ML VIAL ONE ×2 (13:35→14:12)
[2023-10-09] MEDS: MEPERIDINE HCL (50 MG/ML) 1 ML VIAL ONE (14:12)
[2023-10-09] MEDS: MEPERIDINE HCL (25 MG/ML) 1ML VIAL IM ONE (14:15)
[2023-10-09 17:00] VITALS: BP 134/74; PULSE 112; RESP 18; TEMP 99.4; O2SAT 98
[2023-10-09 20:00] VITALS: PULSE 100; RESP 19; O2SAT 93
[2023-10-09 21:00] VITALS: BP 127/78; PULSE 106; RESP 20; TEMP 98.7; O2SAT 99
[2023-10-09] MEDS: ACCU-CHEK COMFORT CURVE STRIP VI ONE (21:01)
[2023-10-10 05:00] VITALS: BP 139/88; PULSE 94; RESP 21; TEMP 98.4; O2SAT 92
[2023-10-10 05:53] LABS: Anion Gap 3 (5-15); Carbon Dioxide 29 mmol/L (20-30); Chloride 97 mmol/L (98-107); Potassium 3.7 mmol/L (3.5-5.1); Sodium 129 mmol/L (136-145)
[2023-10-10 05:54] LABS: Calcium 7.8 mg/dL (8.7-10.4)
[2023-10-10 05:56] LABS: Basophils # (auto) 0.2 10 ^3/uL (0-0.2); Basophils % (auto) 0.7 % (0.0-2.0); Eosinophils # (auto) 0.2 10 ^3/uL (0-0.8); Eosinophils % (auto) 0.9 % (0.0-7.0); Lymphocytes # (auto) 2.4 10 ^3/uL (0.4-5.4); Mean Corpuscular Hgb Conc. 33.2 g/dL (32.0-36.0); Mean Corpuscular Volume 84.3 fL (80.0-100.0); Monocytes # (auto) 1.8 10 ^3/uL (0-1.3); Monocytes % (auto) 7.5 % (0.0-12.0); Neutrophils # (auto) 19.2 10 ^3/uL (1.6-8.6); Neutrophils % (auto) 80.9 % (37.0-80.0); Platelet Count (auto) 271 10^3/uL (140-450); Red Blood Cells 3.91 10^6/uL (4.5-5.90); White Blood Cell 23.7 10^3/uL (4.4-10.8)
[2023-10-10 06:00] LABS: BUN/Creatinine Ratio 8.5 (10.0-20.0); Blood Urea Nitrogen 6 mg/dL (9-23); Glucose 205 mg/dL (74-106)
[2023-10-10 12:33] VITALS: BP 137/79; PULSE 98; RESP 17; TEMP 98.6; O2SAT 92
[2023-10-10] MEDS: INSULIN LANTUS (GLARGINE) 1 /0.01ml (100units/ml) SC SCH (13:21)
[2023-10-10 16:05] VITALS: BP 132/76; PULSE 104; RESP 16; TEMP 99; O2SAT 91
[2023-10-10] MEDS: ACETAMINOPHEN 500 MG TAB PO PRN (17:05)
[2023-10-10] MEDS: LIDOCAINE 1% (LOCAL ANESTH.) PF 5ml SDV ID ONE (17:45)
[2023-10-10 21:00] VITALS: BP 140/84; PULSE 112; RESP 18; TEMP 98.5; O2SAT 94
[2023-10-10] MEDS: SODIUM CHLOR 0.9% PF (SALINE LOCK) 10ML VIAL/SYR IV SCH (23:05)
[2023-10-11] VITALS (7 sets, daily range): BP systolic 125–150; BP diastolic 67–92; PULSE 98–107; RESP 17–20; TEMP 98.3–98.9; O2SAT 93–97
[2023-10-11 08:54] LABS: Basophils # (auto) 0.1 10 ^3/uL (0-0.2); Basophils % (auto) 0.6 % (0.0-2.0); Eosinophils # (auto) 0.1 10 ^3/uL (0-0.8); Eosinophils % (auto) 0.7 % (0.0-7.0); Hemoglobin 11.7 g/dL (13.5-17.5); Lymphocytes # (auto) 2.1 10 ^3/uL (0.4-5.4); Mean Corpuscular Hemoglobin 27.7 pg (28.0-32.0); Mean Corpuscular Hgb Conc. 32.6 g/dL (32.0-36.0); Mean Corpuscular Volume 85.1 fL (80.0-100.0); Monocytes # (auto) 1.1 10 ^3/uL (0-1.3); Monocytes % (auto) 5.4 % (0.0-12.0); Neutrophils # (auto) 17.2 10 ^3/uL (1.6-8.6); Neutrophils % (auto) 83.3 % (37.0-80.0); Platelet Count (auto) 292 10^3/uL (140-450); Red Blood Cells 4.23 10^6/uL (4.5-5.90); White Blood Cell 20.6 10^3/uL (4.4-10.8)
[2023-10-11 09:00] LABS: Chloride 99 mmol/L (98-107); Potassium 4.2 mmol/L (3.5-5.1); Sodium 131 mmol/L (136-145)
[2023-10-11 09:01] LABS: Anion Gap 3 (5-15); Carbon Dioxide 29 mmol/L (20-30)
[2023-10-11 09:06] LABS: BUN/Creatinine Ratio 10.2 (10.0-20.0); Blood Urea Nitrogen 6 mg/dL (9-23); Glucose 136 mg/dL (74-106)
[2023-10-11] MEDS: ERTAPENEM SOD INJ 1 GM in SODIUM CHL 0.9% 50 ML IV ONE (15:13)
[2023-10-12 01:00] VITALS: BP 136/88; PULSE 96; RESP 19; TEMP 98.3; O2SAT 96
[2023-10-12 05:00] VITALS: BP 142/94; PULSE 98; RESP 20; TEMP 98; O2SAT 95
[2023-10-12 06:24] LABS: Chloride 99 mmol/L (98-107); Potassium 4.3 mmol/L (3.5-5.1); Sodium 133 mmol/L (136-145)
[2023-10-12 06:25] LABS: Anion Gap 5 (5-15); Calcium 8.4 mg/dL (8.7-10.4); Carbon Dioxide 29 mmol/L (20-30)
[2023-10-12 06:30] LABS: Glucose 134 mg/dL (74-106)
[2023-10-12 06:32] LABS: BUN/Creatinine Ratio 7.6 (10.0-20.0); Blood Urea Nitrogen < 5 mg/dL (9-23)
[2023-10-12 06:35] LABS: Basophils # (auto) 0.2 10 ^3/uL (0-0.2); Basophils % (auto) 1.1 % (0.0-2.0); Eosinophils # (auto) 0.2 10 ^3/uL (0-0.8); Eosinophils % (auto) 1.3 % (0.0-7.0); Hematocrit 36.9 % (41.0-53.0); Hemoglobin 12.3 g/dL (13.5-17.5); Lymphocytes % (auto) 11.4 % (10.0-50.0); Mean Corpuscular Hgb Conc. 33.3 g/dL (32.0-36.0); Mean Corpuscular Volume 84.2 fL (80.0-100.0); Neutrophils # (auto) 13.7 10 ^3/uL (1.6-8.6); Neutrophils % (auto) 80.2 % (37.0-80.0); Platelet Count (auto) 347 10^3/uL (140-450); Red Blood Cells 4.38 10^6/uL (4.5-5.90); Red Cell Distribution Width 13.8 % (11.8-14.3); White Blood Cell 17.1 10^3/uL (4.4-10.8)
[2023-10-12 08:00] VITALS: BP 146/80; PULSE 99; RESP 18; TEMP 97.9; O2SAT 95
[2023-10-12] MEDS ORDERED: HYDR-4902 PO (10:52)
[2023-10-12] MEDS: ERTAPENEM SOD INJ 1 GM in SODIUM CHL 0.9% 50 ML IV SCH (11:00)
[2023-10-12 12:00] VITALS: BP 144/91; PULSE 101; RESP 18; TEMP 97.6; O2SAT 94
[2023-10-12 15:36] VITALS: BP 146/80; TEMP 36.4
[2023-10-12 16:00] VITALS: BP 149/88; PULSE 101; RESP 18; TEMP 97.6; O2SAT 94
== END 2023-10-12 18:30 | disposition home health service (06) | DRG 710 ==
LOC: ER 11:15 → OVERFLOW 14:05 → EAST 17:13 → TELE-E-ADS 10-06 03:02 → EAST 10-08 04:49 → TELE-E-ADS 10-09 19:04 → EAST 10-10 08:55
PROVIDERS: ADMIT Internal Medicine; ATTEND Internal Medicine
PROC: 0Y6P0Z0 Detachment at Right 1st Toe, Complete, Open Approach (ICD-10-PCS; principal; 2023-10-04)
PROC: 0Y9M0ZZ Drainage of Right Foot, Open Approach (ICD-10-PCS; 2023-10-06)
PROC: 0Y9M0ZZ Drainage of Right Foot, Open Approach (ICD-10-PCS; 2023-10-09)
PROC: 02HV33Z Insertion of Infusion Device into Superior Vena Cava, Percutaneous Approach (ICD-10-PCS; 2023-10-10)
PROC: B548ZZA Ultrasonography of Superior Vena Cava, Guidance (ICD-10-PCS; 2023-10-10)
DX: A41.9 Sepsis, unspecified organism (principal); A48.0 Gas gangrene; E11.52 Type 2 diabetes mellitus with diabetic peripheral angiopathy with gangrene; E87.20 Acidosis, unspecified; E87.1 Hypo-osmolality and hyponatremia; L03.115 Cellulitis of right lower limb; M86.171 Other acute osteomyelitis, right ankle and foot; T79.7XXA Traumatic subcutaneous emphysema, initial encounter; E66.9 Obesity, unspecified; E11.69 Type 2 diabetes mellitus with other specified complication; E11.65 Type 2 diabetes mellitus with hyperglycemia; Z88.0 Allergy status to penicillin; Z83.3 Family history of diabetes mellitus; Z82.49 Family history of ischemic heart disease and other diseases of the circulatory system; X58.XXXA Exposure to other specified factors, initial encounter; Y93.89 Activity, other specified; Y92.89 Other specified places as the place of occurrence of the external cause; Y99.8 Other external cause status; Z79.4 Long term (current) use of insulin; Z68.38 Body mass index [BMI] 38.0-38.9, adult
CPT/HCPCS: 36415; 36569; 36600; 73700; 76937; 80048; 80053; 80202; 81001; 82010; 82805; 82962; 83036; 83605; 85007; 85025; 85027; 85610; 85652; 85730; 87040; 87077; 87186; 87205; 90471; 90715; 93005; 93926; 93971; 96365; 96375; G0378; J0692; J1335; J1815; J2001; J2185; J2250; J2405; J2704; J3490